=== PATIENT | female | born 1995 | race Caucasian/White ===

== ENCOUNTER 2018-02-11 23:10 | Emergency (ER) | payer BC ==
--- NOTE | 2018-02-11 23:16 | PDOC ---
History of Present Illness - General Chief Complaint: Allergic Reaction Stated Complaint: ALLERGIC RX Time Seen by Provider: 02/11/18 23:15 History Source: Patient, Family Exam Limitations: No Limitations - History of Present Illness Initial Comments: 02/11/18 23:50 Parada 22 YOF with h/o anxiety, depression, borderline personality d/o, ETOH abuse on Antabuse, presenting with acute onset of puffy/tearing eyes, tongue swelling, SOB, nausea and rash x 30 minutes [employer] at 11pm. She was out at buffet dinner eating steak with sauce at 8pm. No prior history of allergies or preciptants. No vomiting, diarrhea, BARRERA, dizziness, neuro sx, cp. Denies new medication use. No tobacco or etoh use. No prodromal URI/respiratory sx. 02/12/18 00:30 Past History - Past Medical History Allergies/Adverse Reactions: Allergies Allergy/AdvReac Type Severity Reaction Status Date / Time No Known Allergies Allergy Unverified 02/11/18 23:16 Home Medications: Ambulatory Orders Disulfiram [Antabuse] 250 mg PO DAILY 02/11/18 Escitalopram Oxalate [Lexapro -] 25 mg PO DAILY 02/11/18 Lamotrigine [Lamictal] 150 mg PO DAILY 02/11/18 Lurasidone HCl [Latuda] 40 mg PO DAILY 02/11/18 EPINEPHrine (EPI-PEN 0.3MG) [Epipen 0.3MG -] 0.3 mg IM ASDIR PRN #2 pens Prednisone [Prednisone 50 MG TABLETS] 50 mg PO DAILY 3 Days #3 tablet 02/12/18 Review of Systems - Review of Systems Able to Perform ROS?: Yes Comments:: 02/11/18 23:50 GENERAL/CONSTITUTIONAL: No fever or chills. No weakness. no sweats. HEAD, EYES, EARS, NOSE AND THROAT: +eye swelling and tearing. no eye pain. No change in vision or hearing. No sore throat or mouth pain. No difficulty swallowing. No congestion. CARDIOVASCULAR: No chest pain or palpitations, syncope or edema. RESPIRATORY: +SOB, no cough, wheezing, or hemoptysis. GASTROINTESTINAL +nausea. No vomiting. No diarrhea or constipation. No bloody stools. GENITOURINARY: No hematuria, dysuria, frequency, urgency or other changes. MUSCULOSKELETAL: No joint or muscle swelling or pain. No neck or back pain. SKIN: +rash NEUROLOGIC: No headache, vertigo, loss of consciousness, or change in strength/ sensation. HEMATOLOGIC/LYMPHATIC: No anemia, easy bruising/bleeding, or history of blood clots. ALLERGIC/IMMUNOLOGIC: No allergies All other systems reviewed and negative, or as documented in HPI. 02/11/18 23:51 *Physical Exam - Physical Exam Comments: 02/11/18 23:52 General: in moderate distress HEENT: NCAT, PERRL, EOMI, clear conjunctiva, anicteric, moist mucus membranes, clear oropharynx. Airway patent, normal phonation. Uvula midline. no oral lesions. Neck: neck supple, FROM Resp: CTAB, normal and even respirations, no respiratory distress CVS: RRR, no murmurs, 2+ peripheral pulses throughout, no peripheral edema Abdomen: soft, NTND, no peritoneal signs. Back: nontender, normal inspection and ROM MSK: no edema, HENRY x4, ROM intact. No clubbing or cyanosis. normal bulk and tone. Neuro: alert, oriented appropriately; no focal neurologic deficits Skin: warm and well perfused, cap refill <2 sec, +macular rash over anterior chest and upper arms bilaterally; nonpruritic. Medical Decision Making - Medical Decision Making 02/11/18 23:54 vital signs, tachycardia noted. +rash, nausea. lungs clear. no airway involvement unclear precipitant, possible food contaminant? DDx. allergic reaction: hypersensitivity reaction, allergic reaction, anaphylaxis, hives/urticaria. drug rash. dermatitis. serum sickness. vasculitis. medication side effect. -No fevers or systemic findings, clinically well appearing. no mucosal involvement so doubt SJS/TEN. airway patent, doubt anaphylaxis or Dress syndrome. - given steroids, benadryl, pepcid, IVF with clinical improvement. VS wnl, stable, no hypotension. on clinical reeval, remains improved, rash disappeared. VS normalized. feels better, eager for discharge - treat as possible allergic reaction (unknown trigger, contaminant) vs antabuse reaction with wine sauce/product - instructions on avoiding triggers, rx prednisone x 3 more days, benadryl Q6-8 hr ATC x 3 days, pepcid for dual antihistamine relief. will rx epi pen, injection and use discussed with patient on how and when to use. - DC with PCP followup, avoid preciptants. avoid alcohol products including red wine/white wine sauce with interaction w/antabuse can bander operator referral 02/12/18 00:37 *DC/Admit/Observation/Transfer Diagnosis at time of Disposition: Allergic reaction - Discharge Dispostion Disposition: HOME Condition at time of disposition: Stable Decision to Admit order: No - Prescriptions Prescriptions: EPINEPHrine (EPI-PEN 0.3MG) [Epipen 0.3MG -] 0.3 mg IM ASDIR PRN #2 pens PRN Reason: Dyspnea Prednisone [Prednisone 50 MG TABLETS] 50 mg PO DAILY 3 Days #3 tablet - Referrals Referrals: [facility] [Provider Group] [facility] [Provider Group] [facility] [Provider Group] [facility] [Provider Group] - Patient Instructions Printed Discharge Instructions: DI for Food Allergy, DI for General Allergic Reactions, DI for Allergy Testing Additional Instructions: - you were treated as possible allergic reaction (unknown trigger, contaminant) vs antabuse reaction with wine sauce/product - instructions on avoiding triggers, rx prednisone 50 mg tablets x 3 days, benadryl 1-2 tablets every 6-8 hours around the clock x 3 days, pepcid daily for dual antihistamine relief. will rx epinephrine pen, injection and use discussed with patient on how and when to use. for airway involvement, cannot breathe, anaphylaxis in setting of severe allergic reaction. to use the epinephrine pen, it is blue to the zainab and inject into your lateral thigh. - follow up with primary doctor and can bander operator, referrals given. avoid preciptants (food or medication or other contaminants). avoid alcohol products including red wine/white whine sauce with interaction w/antabuse - stay well hydrated - do not drive or operate machinery while taking benadryl, as it can make you sleepy. - Post Discharge Activity
[2018-02-11] MEDS ORDERED: SODIUM CHLORIDE 1,000 ML IV STA (23:18)
[2018-02-11 23:22] VITALS: TEMP 98.3; BMI 18.8
[2018-02-11] MEDS ORDERED: methylPREDNISolone NA SUCC 125 MG/2 ML VIAL ONE (23:24)
[2018-02-11] MEDS ORDERED: FAMOTIDINE 20 MG/50 ML IVPB 20 MG/50 ML MG IVPB ONE ×2 (23:25→23:30)
[2018-02-11] MEDS ORDERED: methylPREDNISolone NA SUCC 125 MG/2 ML VIAL IVPB ONE (23:30)
[2018-02-12 00:35] VITALS: BP 124/70; PULSE 90
== END 2018-02-12 00:45 | disposition home or self-care (01) ==
LOC: FER 23:10
PROC: 3E0333Z Introduction of Anti-inflammatory into Peripheral Vein, Percutaneous Approach (ICD-10-PCS; principal; 2018-02-11)
PROC: 3E033GC Introduction of Other Therapeutic Substance into Peripheral Vein, Percutaneous Approach (ICD-10-PCS; 2018-02-11)
PROC: 3E0337Z Introduction of Electrolytic and Water Balance Substance into Peripheral Vein, Percutaneous Approach (ICD-10-PCS; 2018-02-11)
DX: T78.40XA Allergy, unspecified, initial encounter (principal); X58.XXXA Exposure to other specified factors, initial encounter; F41.9 Anxiety disorder, unspecified; F32.9 Major depressive disorder, single episode, unspecified; F60.3 Borderline personality disorder; F10.10 Alcohol abuse, uncomplicated
CPT/HCPCS: 99282-25; J7030

== ENCOUNTER 2018-02-18 20:43 | Emergency (ER) | payer BC ==
[2018-02-18 21:00] VITALS: BP 133/79; PULSE 130; TEMP 97.6; BMI 18.8
--- NOTE | 2018-02-18 21:02 | PDOC ---
History of Present Illness - General Chief Complaint: Allergic Reaction Stated Complaint: ALLERGIC REACTION Time Seen by Provider: 02/18/18 20:52 History Source: Patient Exam Limitations: No Limitations - History of Present Illness Initial Comments: 02/18/18 21:11 This is a 22-year-old female brought in by her mother for evaluation of an ALLERGIC reaction. This is the third visit to the emergency department this child has had in the last week. Patient is currently taking 20 mg of prednisone , and Karishma. She has a history of anxiety. Patient used her EpiPen this evening when she felt like her tongue was swollen and she was having a hard time breathing. Here in the emergency room patient is very anxious and shaking. Allergies: None Past Medical History: Anxiety Social history: Lives with family. No smoking. No alcohol. No illicit drugs. Surgical history: None General: No fevers or chills, no weakness, no weight loss HEENT: No change in vision. No sore throat,. No ear pain, tongue swollen CardioVascular: no chest discomfort. No shortness of breath Respiratory:No cough, or wheezing. Shortness of breath Gastrointestinal: no nausea, vomiting, diarrhea or constipation, No rectal bleeding Genitourinary: No dysuria, hematuria, or frequency Musculoskeletal: No joint or muscle pain or swelling Neurologic: No headache, vertigo, dizziness or loss of consciousness Psychiatric: nor depression , anxiety Skin: No rashes or easy bruising Endocrine: no increased thirst or abnormal weight change Allergic: no skin or latex allergy All other systems reviewed and normal Exam: General: Well-nourished well-developed individual, moderate distress secondary to her anxiety HEENT: Throat: Normal, tonsils normal, no erythema or exudate, there is some questionable very mild angioedema of the tongue, otherwise there is no angioedema of the posterior oropharynx. Neck: Supple, no meningeal signs, no lymphadenopathy Eyes::Pupils equal reactive and round, extraocular motion intact Chest: Nontender to palpation Cardiac: S1-S2 normal, regular rate and rhythm, no murmurs rubs or gallops Respiratory: Lungs clear to auscultation bilateral, there is good air entry bilaterally with no wheezing Abdomen: Soft, nondistended, normal bowel sounds, there is no tenderness on palpation diffusely Extremities: Warm, dry, no cyanosis, clubbing, or edema Skin: No rashes Neuro: Alert and oriented x3, CN II - XII intact, nonfocal exam with normal strength, normal sensation, normal reflexes, normal gait, Psych: Normal mood and affect Medical decision making: This is a 22-year-old female who comes in post using her EpiPen for some very mild tongue swelling. Patient has had 3 visits in the last week for similar symptoms. Patient does follow-up with an monument installer but has not gotten the results of her ALLERGY testing back. It appears that there is a big anxiety component to her ALLERGIC reaction. As my exam reveals very minimal angioedema and otherwise no symptoms no rash no itching or any other symptoms. However patient given some prednisone, Benadryl and will be observed for at least 2 hours. Patient also given Xanax for her anxiety Past History - Past Medical History Allergies/Adverse Reactions: Allergies Allergy/AdvReac Type Severity Reaction Status Date / Time No Known Allergies Allergy Unverified 02/11/18 23:16 Home Medications: Ambulatory Orders Disulfiram [Antabuse] 250 mg PO DAILY 02/11/18 Escitalopram Oxalate [Lexapro -] 25 mg PO DAILY 02/11/18 Lamotrigine [Lamictal] 150 mg PO DAILY 02/11/18 Lurasidone HCl [Latuda] 40 mg PO DAILY 02/11/18 EPINEPHrine (EPI-PEN 0.3MG) [Epipen 0.3MG -] 0.3 mg IM ASDIR PRN #2 pens Prednisone [Prednisone 50 MG TABLETS] 20 mg PO DAILY 02/18/18 COPD: No Psychiatric Problems: Yes - Suicide/Smoking/Psychosocial Hx Smoking History: Never smoked 'Breaking Loose' booklet given: 02/12/18 Substance Use Type: None *DC/Admit/Observation/Transfer Diagnosis at time of Disposition: Anxiety Allergic reaction Qualifiers: Encounter type: initial encounter Qualified Code(s): T78.40XA - Allergy, unspecified, initial encounter - Discharge Dispostion Disposition: HOME Condition at time of disposition: Stable - Referrals Referrals: Ender Mccall MD [Primary Care Provider] - - Patient Instructions Additional Instructions: Continue your medications as prescribed. Follow-up with your monument installer. Return to the emergency department immediately with ANY new, persistent or worsening symptoms. Continue any medications as previously prescribed by your physician. You should follow up with your primary doctor as soon as possible regarding today's emergency department visit. . Please make sure your doctor reviews the results of your emergency evaluation. Thank you for coming to the Emergency Department today for your care. It was a pleasure to see you today. Please note that your evaluation is INCOMPLETE until you follow-up with your doctor. - Post Discharge Activity
[2018-02-18] MEDS ORDERED: diphenhydrAMINE HCL 50 MG CAPSULE PO ONE (21:03)
[2018-02-18] MEDS ORDERED: predniSONE 20 MG TABLET (UD) PO ONE (21:03)
[2018-02-18] MEDS ORDERED: predniSONE 20 MG TABLET (UD) ONE (21:06)
[2018-02-18] MEDS ORDERED: diphenhydrAMINE HCL 50 MG CAPSULE ONE (21:06)
[2018-02-18] MEDS ORDERED: ALPRAZolam 1 MG TABLET PO PRN (21:10)
[2018-02-18] MEDS ORDERED: ALPRAZolam 0.25 MG TABLET ONE (21:13)
== END 2018-02-18 22:47 | disposition home or self-care (01) ==
LOC: FER 20:43
DX: T78.40XA Allergy, unspecified, initial encounter (principal); F41.9 Anxiety disorder, unspecified; F99 Mental disorder, not otherwise specified
CPT/HCPCS: 99282-25

== ENCOUNTER 2018-02-25 19:26 | Emergency (ER) | payer BC ==
[2018-02-25 19:34] VITALS: BP 124/83; TEMP 98.6; BMI 20.7
--- NOTE | 2018-02-25 19:52 | PDOC ---
History of Present Illness - General Exam Limitations: No Limitations - History of Present Illness Initial Comments: 02/25/18 20:25 CC: Tachycardia HPI: The patient is a 22 year old female, with a significant past medical history of anxiety, depression, borderline personality d/o, ETOH abuse on Antabuse, who presents to the emergency department with, palpitations. As per patient, she used her epi-pen yesterday because she thought she was having an allergic reaction. Patient was evaluated at another facility for her symptoms and diagnosed with tardive dyskinesia and her Latuda was changed from 40mg to 20mg. Patient endorses that she left the facility AMA despite being tachycardic. She notes her palpitations has not resolved and she is experienced associated lightheadedness. Patient took her Clonidine, without relief, prompting her visit to the ER tonight. She denies recent fevers, chills, or headache. She denies recent nausea, vomit, diarrhea or constipation. She denies recent dysuria, frequency, urgency or hematuria. She denies recent chest pain or shortness of breath. Allergies: NKDA Past surgical history: None reported. Social history: Alcohol abuse. Primary Care Physician: Dr. Mccall <Olga Olea - Last Filed: 02/25/18 20:27> <Sharath Cano - Last Filed: 02/25/18 21:28> - General Chief Complaint: Tachycardia Stated Complaint: RAPID HEART RATE Time Seen by Provider: 02/25/18 19:50 Past History <Olga Olea - Last Filed: 02/25/18 20:27> - Past Medical History COPD: No Psychiatric Problems: Yes - Suicide/Smoking/Psychosocial Hx Smoking History: Never smoked Have you smoked in the past 12 months: No Information on smoking cessation initiated: No 'Breaking Loose' booklet given: 02/12/18 Substance Use Type: None <Sharath Cano - Last Filed: 02/25/18 21:28> - Past Medical History Allergies/Adverse Reactions: Allergies Allergy/AdvReac Type Severity Reaction Status Date / Time No Known Allergies Allergy Unverified 02/11/18 23:16 Home Medications: Ambulatory Orders Disulfiram [Antabuse] 250 mg PO DAILY 02/11/18 Escitalopram Oxalate [Lexapro -] 25 mg PO DAILY 02/11/18 Lamotrigine [Lamictal] 150 mg PO DAILY 02/11/18 Lurasidone HCl [Latuda] 40 mg PO DAILY 02/11/18 EPINEPHrine (EPI-PEN 0.3MG) [Epipen 0.3MG -] 0.3 mg IM ASDIR PRN #2 pens EPINEPHrine (EPI-PEN 0.3MG) [Epipen 0.3MG -] 0.3 mg IM ASDIR #2 pens 02/18/18 Prednisone [Prednisone 50 MG TABLETS] 20 mg PO DAILY 02/18/18 Review of Systems - Review of Systems Able to Perform ROS?: Yes Comments:: 02/25/18 20:25 ROS: A complete review of 10 out of 10 review of systems is taken and is negative apart from what is previously mentioned below and in the HPI. <Olga Olea - Last Filed: 02/25/18 20:27> *Physical Exam - Vital Signs Last Vital Signs Temp Pulse Resp BP Pulse Ox 98.6 F 118 H 20 124/83 100 02/25/18 19:31 02/25/18 19:31 02/25/18 19:31 02/25/18 19:31 02/25/18 19:31 - Physical Exam Comments: 02/25/18 20:25 Exam: Vitals: Triage Vital signs reviewed General Appearance: no acute distress, well nourished well developed, Head: Atraumatic, normocephalic Neck: Supple;No Nuchal rigidity Chest Wall: Nontender Cardiac: Regular rate and rhythm, no murmurs, no rubs, no gallops, Lungs: Clear to auscultation bilateral, good air movement bilaterally, Abdomen: Soft, nondistended, normal bowel sounds, nontender to palpation Rectal: Exam deferred Extremities: Full range of motion to all extremities, no cyanosis, clubbing, or edema Skin: Warm and dry, no rashes or lesions, no petechiae Neuro: AOX3; Cranial Nerves 2-12 grossly intact, Strength intact to all extremities, Sensation intact to all extremities Psych: normal mood, normal affect <Olga Olea - Last Filed: 02/25/18 20:27> - Vital Signs Last Vital Signs Temp Pulse Resp BP Pulse Ox 98.6 F 118 H 20 124/83 100 02/25/18 19:31 02/25/18 19:31 02/25/18 19:31 02/25/18 19:31 02/25/18 19:31 <Sharath Cano - Last Filed: 02/25/18 21:28> Moderate Sedation - Procedure Monitoring Vital Signs: Procedure Monitoring Vital Signs Temperature 98.6 F 02/25/18 19:31 Pulse Rate 118 H 02/25/18 19:31 Respiratory Rate 20 02/25/18 19:31 Blood Pressure 124/83 02/25/18 19:31 O2 Sat by Pulse Oximetry (%) 100 02/25/18 19:31 <Olga Olea - Last Filed: 02/25/18 20:27> - Procedure Monitoring Vital Signs: Procedure Monitoring Vital Signs Temperature 98.6 F 02/25/18 19:31 Pulse Rate 118 H 02/25/18 19:31 Respiratory Rate 20 02/25/18 19:31 Blood Pressure 124/83 02/25/18 19:31 O2 Sat by Pulse Oximetry (%) 100 02/25/18 19:31 <Sharath Cano - Last Filed: 02/25/18 21:28> Heart Score/ECG Review - ECG Impressions Comment:: 02/25/18 21:27 EKG performed at 2123 demonstrates sinus rhythm [address] elevations or T- wave inversions no evidence of WPW Interpreted by me. <Sharath Cano - Last Filed: 02/25/18 21:28> ED Treatment Course - LABORATORY CBC & Chemistry Diagram: 02/25/18 19:57 02/25/18 19:57 - ADDITIONAL ORDERS Additional order review: Laboratory Results 02/25/18 19:57 Urine HCG, Qual Negative - Medications Given in the ED: ED Medications Discontinued Medications Generic Name Dose Route Start Last Admin Trade Name Freq PRN Reason Stop Dose Admin Sodium Chloride 1,000 ml 02/25/18 19:58 02/25/18 20:09 Normal Saline - IV 02/25/18 19:59 1,000 ml ONCE ONE Administration <Olga Olea - Last Filed: 02/25/18 20:27> - LABORATORY CBC & Chemistry Diagram: 02/25/18 19:57 02/25/18 19:57 <Sharath Cano - Last Filed: 02/25/18 21:28> Medical Decision Making - Medical Decision Making 02/25/18 20:26 22 year old female, with a significant past medical history of anxiety, depression, borderline personality d/o, ETOH abuse on Antabuse, who presents to the emergency department with, palpitations . Plan is: EKG Labs- Comp, TSH Fluids Reevaluate <Olga Olea - Last Filed: 02/25/18 20:27> - Medical Decision Making 22 years old well-appearing no apparent distress presents with tachycardia Yesterday thought she was having ALLERGIC reaction took an EpiPen presented to the ED it was determined that she was suffering from tardive dyskinesia secondary to her psychiatric medications spoke to her prescribing doctor the dose was cut in half Currently slightly tachycardia 118 no PE DVT risk factors well-appearing no apparent distress We'll check labs hydrate observed and reassessed Reevaluation: 927 patient was notable heart rate currently 86 Labs within normal limits. Findings, need for follow-up and strict return instructions discussed with patient. <Sharath Cano - Last Filed: 02/25/18 21:28> *DC/Admit/Observation/Transfer - Attestations Scribe Attestion: 02/25/18 20:26 Documentation prepared by Olga Olea, acting as caregivers non medical for Sharath Cano MD. <Olga Olea - Last Filed: 02/25/18 20:27> - Discharge Dispostion Decision to Admit order: No <Sharath Cano - Last Filed: 02/25/18 21:28> Diagnosis at time of Disposition: Palpitations - Discharge Dispostion Condition at time of disposition: Stable - Referrals Referrals: Ender Mccall MD [Primary Care Provider] - - Patient Instructions Printed Discharge Instructions: DI for Palpitations Additional Instructions: Drink plenty fluids. Take medications only as prescribed. Follow-up with your doctor on Wednesday. Return to ED for any concerns. - Post Discharge Activity
[2018-02-25] MEDS ORDERED: SODIUM CHLORIDE 0.9% 1000 ML INFUS.BAG IV ONE (19:58)
[2018-02-25 20:24] LABS: BASO % 0.4 % (0-2.0); EOS % 4.4 % (0-4.5); HEMATOCRIT 41.4 % (32.4-45.2); HEMOGLOBIN 13.9 GM/dl (10.7-15.3); LYMPH % 39.1 % (8-40); MCH 29.5 pg (25.7-33.7); MCHC 33.7 g/dl (32.0-36.0); MEAN CELL VOLUME 87.7 fl (80-96); MEAN PLT VOLUME 7.5 fl (7.5-11.1); MONO % 7.6 % (3.8-10.2); NEUT % 48.5 % (42.8-82.8); PLATELET COUNT 309 K/MM3 (134-434); RBC 4.72 M/mm3 (3.60-5.2); RDW 11.4 % (11.6-15.6); WHITE BLOOD COUNT 9.5 K/mm3 (4.0-10.8)
[2018-02-25 20:42] LABS: ALBUMIN 3.9 g/dl (3.5-5.0); ALK PHOS 49 U/L (32-92); ANION GAP 5 MMOL/L (8-16); BILIRUBIN,TOTAL 0.9 mg/dl (0.2-1.0); BLOOD UREA NITROGEN 9 mg/dl (7-18); CALCIUM 8.8 mg/dl (8.4-10.2); CHLORIDE 107 mmol/L (98-107); CO2 23 mmol/L (22-28); CREATININE 0.8 mg/dl (0.6-1.3); GLUCOSE,RANDOM 105 mg/dl (74-106); POTASSIUM 3.3 mmol/L (3.5-5.1); SGOT/AST 18 U/L (10-42); SGPT/ALT 15 U/L (10-40); SODIUM 135 mmol/L (136-145); TOT PROT 6.7 g/dl (6.4-8.3)
[2018-02-25 21:40] VITALS: PULSE 86
--- NOTE | 2018-02-26 17:26 | EKG ---
Test Reason : Blood Pressure : / mmHG Vent. Rate : 086 BPM Atrial Rate : 086 BPM P-R Int : 174 ms QRS Dur : 084 ms QT Int : 342 ms P-R-T Axes : 059 077 049 degrees QTc Int : 409 ms NORMAL SINUS RHYTHM NORMAL ECG NO PREVIOUS ECGS AVAILABLE Confirmed by MD RAJWINDER, HUMAIRA ([id number]) on 02/26/2018 5:26:33 PM Referred By: MD GAUTHIER Confirmed By:HUMAIRA PURDY MD
== END 2018-02-25 21:39 | disposition home or self-care (01) ==
LOC: FER 19:26
PROC: 3E0337Z Introduction of Electrolytic and Water Balance Substance into Peripheral Vein, Percutaneous Approach (ICD-10-PCS; principal; 2018-02-25)
DX: R00.2 Palpitations (principal); F41.8 Other specified anxiety disorders; F60.3 Borderline personality disorder; F10.10 Alcohol abuse, uncomplicated
CPT/HCPCS: 36415; 80053; 84443; 84703; 85025; 93005; 99284-25; J7030